=== PATIENT | female | born 1965 | race Caucasian/White ===

== ENCOUNTER → 2019-07-17 | Outpatient (CLI) | payer BC ==
--- NOTE | 2019-07-21 21:35 | SLE ---
[facility] [place] [address] POLYSOMNOGRAPHY STUDY Name: ZAHIDA LOZOYA Room #: [facility]#: [id number] Admission: 07/17/19 Attend Phys: Regina Hodges MD Discharge: Date of : 61 Report #: [id number] THIS REPORT FOR: //name// CC: Regina Moise DATE OF SERVICE: 07/17/2019 HOME SLEEP STUDY ATTENDING PHYSICIAN: Dr. Hannah Moise. The patient is a 54-year-old who weighs 186 pounds with a BMI of 34. The patient's [place] score was 7. The patient underwent home sleep study performed at [facility]. Total recording time was 526 minutes. During the night study, the patient had 14 obstructive apneas, no central apneas, 1 mixed apnea and 95 hypopneas. The patient's apnea-hypopnea index was 12.5 per hour with a supine index of 22.4 per hour. Nocturnal oximetry study revealed an average oxygen saturation of 92% with the lowest of 80%. 42 minutes were spent in oxygen saturation less than 90% and 2.7 minutes with saturation of less than 85%. Mean heart rate 89 beats per minute with a maximum of 115 beats per minute. IMPRESSION: 1. Mild sleep apnea-hypopnea syndrome with moderate increase during supine sleep. The patient's AHI total 12.5 per hour with a supine AHI of 22 per hour. 2. Nocturnal hypoxia secondary to obstructive sleep apnea and possible hypoventilation. RECOMMENDATIONS: 1. Weight loss along with avoidance of supine sleep is initially recommended. 2. If the patient is clinically symptomatic or has comorbid conditions, then consider treating the patient's sleep apnea with either CPAP versus a trial of oral appliance. 3. Once the patient is optimally treated, then follow up in 4-6 weeks to assess compliance with treatment and to document clinical improvement. 4. Avoid LITIGATION COORDINATOR depressants. [facility] [address] [place] [address] POLYSOMNOGRAPHY STUDY Name: ZAHIDA LOZOYA EMY Room #: [facility]#: [id number] Admission: 07/17/19 Attend Phys: Regina Hodges MD Discharge: Date of : 61 Report #: [id number] 5. Cautioned regarding driving until symptoms of sleep apnea resolve with the above recommendations. <ELECTRONICALLY SIGNED> By: Chidi Cui MD 07/21/19 [id number] Chidi Cui MD /nt
== END ==
LOC: SLEEPLAB 07:54
DX: G47.33 Obstructive sleep apnea (adult) (pediatric) (principal); G47.30 Sleep apnea, unspecified